=== PATIENT | male | born 1980 | race African-American/Black ===

== ENCOUNTER 2017-04-23 14:33 | Emergency (ER) | payer MEDICAID, OTHER ==
[2017-04-23] MEDS ORDERED: IBUPROFEN 600 MG TABLET PO ONE (16:00)
--- NOTE | 2017-04-23 16:07 | ER Document Report ---
ED Extremity Problem, Lower - General Chief Complaint: Knee Injury Stated Complaint: FALL KNEE PAIN Time Seen by Provider: 04/23/17 15:21 Mode of Arrival: Ambulatory Information source: Patient Notes: 33-year-old morbidly obese male presents to ED for pain in his left hip and knee. He states he has a history of a fractured pelvis on the left side in the past with no surgeries. Patient states he was coming out of his house after her neck motion outside 3 days ago states his he had not completely put his shoes on and he tripped coming down the stairs fell landing on his left side. States he has had pain in his left hip and knee since the fall but has not followed up with her doctor. States he thought he could use ibuprofen ice and be okay but the pain has not gotten better. 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 - HPI Patient complains to provider of: Injury, Pain Location: Hip, Knee Occurred: Other - 3 days ago Where: Home, Outdoors Onset/Duration: Sudden, Persistent Quality of pain: Achy, Sharp, Throbbing Severity: Moderate Pain Level: 3 Context: Fell Recent injury: Yes Associated symptoms: Painful ambulation, Other - States it feels like his left knee goes to the side sometimes. Has pain from the left pelvis down to his knee. Exacerbated by: Hanging down, Movement, Walking Relieved by: Elevation, Ice, Rest - Related Data Allergies/Adverse Reactions: No Known Allergies Allergy (Verified 04/23/17 15:13) Past Medical History - General Information source: Patient - Social History Smoking Status: Current Every Day Smoker Cigarette use (# per day): Yes - 2-3 cigarettes a day Chew tobacco use (# tins/day): No Smoking Education Provided: Yes - Less than 1 minute Frequency of alcohol use: Social - On the weekends Drug Abuse: None Occupation: Machine Operator [employer] Lives with: Parents Family History: Arthritis, CAD, DM, Hyperlipidemia, Hypertension, Malignancy. denies: COPD, CVA, Thyroid Disfunction Patient has suicidal ideation: No Patient has homicidal ideation: No - Past Medical History Cardiac Medical History: Reports: None Pulmonary Medical History: Reports: None EENT Medical History: Reports: None Neurological Medical History: Reports: None Endocrine Medical History: Reports: None Renal/ Medical History: Reports: None Malignancy Medical History: Reports None GI Medical History: Reports: None Musculoskeltal Medical History: Reports Hx Musculoskeletal Deformity, Reports Hx Musculoskeletal Trauma Skin Medical History: Reports None Psychiatric Medical History: Reports: None Traumatic Medical History: Reports: None Infectious Medical History: Reports: None Surgical Hx: Negative Past Surgical History: Reports: None - Immunizations Hx Diphtheria, Pertussis, Tetanus Vaccination: No Review of Systems - Review of Systems Constitutional: No symptoms reported EENT: No symptoms reported Cardiovascular: No symptoms reported Respiratory: No symptoms reported Gastrointestinal: No symptoms reported Genitourinary: No symptoms reported Male Genitourinary: No symptoms reported Musculoskeletal: Joint pain - Left hip and knee, Muscle pain, Muscle stiffness. denies: Joint swelling, Leg swelling, Ankle swelling Skin: No symptoms reported Hematologic/Lymphatic: No symptoms reported Neurological/Psychological: No symptoms reported -: Yes All other systems reviewed and negative Physical Exam - Vital signs Vitals: Temp Pulse BP Pulse Ox 97.7 F 89 149/90 H 93 04/23/17 15:12 04/23/17 15:12 04/23/17 15:12 04/23/17 15:12 Interpretation: Normal - General General appearance: Appears well, Alert - HEENT Head: Normocephalic, Atraumatic Eyes: Normal Pupils: PERRL - Respiratory Respiratory status: No respiratory distress Chest status: Nontender Breath sounds: Normal Chest palpation: Normal - Cardiovascular Rhythm: Regular Heart sounds: Normal auscultation Murmur: No - Abdominal Inspection: Normal Distension: No distension Bowel sounds: Normal Tenderness: Nontender Organomegaly: No organomegaly - Back Back: Normal, Nontender - Extremities General upper extremity: Normal inspection, Nontender, Normal color, Normal ROM , Normal temperature General lower extremity: Normal inspection, Normal color, Normal temperature, Normal weight bearing. No: Gia's sign Hip: Tender, Pain with ROM. No: Abrasion, Deformity, Dislocation, Ecchymosis, Instability, Laceration, Unable to bear weight Thigh: Tender Knee: Tender, Pain with ROM, Patellar tendon intact, Tender joint line. No: Abrasion, Deformity, Dislocation, Drawer's test instability, Ecchymosis, Instability, Laceration, Laxity with valgus stress, Laxity with varus stress, Popliteal fossa tender Calf: Normal, Nontender Ankle: Normal, Nontender Foot: Normal, Nontender - Neurological Neuro grossly intact: Yes Cognition: Normal Orientation: AAOx4 [place] Coma Scale Eye Opening: Spontaneous Juan Alberto Coma Scale Verbal: Oriented Juan Alberto Coma Scale Motor: Obeys Commands [place] Coma Scale Total: 15 Speech: Normal Motor strength normal: LUE, RUE, LLE, RLE Sensory: Normal - Psychological Associated symptoms: Normal affect, Normal mood - Skin Skin Temperature: Warm Skin Moisture: Dry Skin Color: Normal Course - Re-evaluation Re-evalutation: 04/23/17 16:53 Discussed x-ray reports with patient. Written report given to patient to follow -up with orthopedics. Patient has chronic changes to knee and hip with no acute injuries noted on the x-rays. Patient will be treated with ibuprofen in the emergency room. He was recommended using Aspercreme to the knee and hip for his arthritis. Patient will be given name and number of orthopedics for continued pain and further treatment. - Vital Signs Vital signs: Temp Pulse Resp BP Pulse Ox 97.7 F 75 18 150/95 H 94 04/23/17 15:12 04/23/17 17:17 04/23/17 17:17 04/23/17 17:17 04/23/17 17:17 - Diagnostic Test Radiology reviewed: Image reviewed, Reports reviewed Procedures - Immobilization Left Knee Immobilizer type: Federico wrap Performed by: PCT Post-Proc Neuro Vasc Exam: Normal Alignment checked and good: Yes Discharge - Discharge Clinical Impression: Chronic left hip pain, Arthritis of left hip, Arthritis of left knee Left knee pain Qualifiers: Chronicity: chronic Qualified Code(s): M25.562 - Pain in left knee Fall Qualifiers: Encounter type: initial encounter Qualified Code(s): W19.XXXA - Unspecified fall, initial encounter Condition: Stable Disposition: HOME, SELF-CARE Additional Instructions: Arthritis Your symptoms are due to arthritis. Arthritis is an inflammation of the joints. There are many types -- osteoarthritis (due to "wear and tear"), auto- immmune arthritis (such as rheumatoid, lupus, Shalonda's, and others), and crystal -induced arthritis (such as gout and pseudogout). The physician's examination, combined with laboratory tests, will determine the cause of your arthritis. All types of arthritis are treated with antiinflammatory medications. Other medication may be required for special types of arthritis, or if your problem does not respond to the antiinflammatory medicine. Local warmth may be helpful. Move the involved joints through the full range of motion daily. Mild exercise is usually still possible for most persons with arthritis (ask your physician). Swimming provides good exercise without damaging the joints. Contact the physician if you are worsening in any way. FEDERICO WRAP: A compression dressing (federico wrap) has been placed. This helps hold the area still. It limits swelling and internal bleeding. The wrap should be comfortably snug -- not tight. You should feel a sense of pressure, but not severe pain under the wrap. Unless the physician tells you otherwise, you can adjust the wrap for comfort. If the wrap causes symptoms suggesting it's too tight -- uncomfortable pressure, swelling or discoloration beyond the wrap, numbness, or severe pain - - you must loosen the wrap. If these symptoms don't resolve promptly, return for re-evaluation. Try icy hot or Aspercreme to the area of pain and be sure to follow-up with orthopedics for further treatment. ICE & ELEVATION: Apply ice packs frequently against the painful area. Many different schedules are recommended, such as "20 minutes on, 20 minutes off" or "one hour ice, two hours rest." If you need to work, you may need to go longer between ice treatments. You should plan to have the area ice packed AT LEAST one- fourth of the time. The ice should be applied over the wrap, tape, or splint, or over a layer of cloth -- not directly against the skin. Some ice bags have a built-in cloth and can be put directly on the skin. Your injured part should be elevated as much as possible over the next 48 hours. Try to keep the injury above the level of the heart. Avoid use of the injured area. Elevation and rest will decrease the swelling. USE OF [id number] IBUPROFEN: Ibuprofen (Advil, Nuprin, Medipren, Motrin IB) is a medication for fever and pain control. In addition, it has anti- inflammatory effects which may be beneficial, especially in the treatment of injuries. It's best to take ibuprofen with food. Persons with ulcer disease or allergy to aspirin should notify their physician of this before taking ibuprofen. Ibuprofen can be given every four to six hours, for a total of four doses daily. Age Pain or fever dose Antiinflammatory dose 6-8 yr 200 mg (1 tab) 200 mg (1 tab) 9-11 yr 200 mg (1 tab) 200-400 mg (1-2 tab) 11-14 yr 200-400 mg (1-2 tab) 400 mg (2 tab) 15-adult 400 mg (2 tab) 600 mg (3 tab) FOLLOW-UP CARE: If you have been referred to a physician for follow-up care, call the physician s office for an appointment as you were instructed or within the next two days. If you experience worsening or a significant change in your symptoms, notify the physician immediately or return to the Emergency Department at any time for re-evaluation. Forms: Elevated Blood Pressure, Smoking Cessation Education, Return to Work Referrals: ALBA MG, [ACTIVE STAFF] - Follow up as needed
--- NOTE | 2017-04-23 16:44 | RADIOLOGY REPORT (SQ) ---
EXAM DESCRIPTION: HIP LEFT AP/LATERAL COMPLETED DATE/TIME: 04/23/2017 4:33 pm REASON FOR STUDY: fall pain COMPARISON: None. NUMBER OF VIEWS: Two views. TECHNIQUE: AP pelvis and additional frog-leg view of the left hip. LIMITATIONS: None. FINDINGS: MINERALIZATION: Normal. LEFT HIP: No fracture or dislocation. No bulky bony spurring. Mild joint space narrowing. RIGHT HIP: No fracture or dislocation. No joint space narrowing or bony spurring. PUBIS AND ISCHIUM: No fracture. PELVIS: No acute fracture. Along left left superior pubic ramus, a band of chronic appearing periost eal new bone is present, which could be related to old remote prior injury. SACRUM: No fracture or dislocation. No worrisome bone lesions. LOWER LUMBAR SPINE: No fracture or dislocation. No worrisome bone lesions. No significant disc disea se. SOFT TISSUES: No findings. OTHER: Sclerosis both SI joints IMPRESSION: No acute fracture. Mild left hip joint space narrowing. TECHNICAL DOCUMENTATION: JOB ID: [id number] [employer]- All Rights Reserved
--- NOTE | 2017-04-23 16:50 | RADIOLOGY REPORT (SQ) ---
EXAM DESCRIPTION: KNEE LEFT 4 VIEW COMPLETED DATE/TIME: 04/23/2017 4:33 pm REASON FOR STUDY: fall pain COMPARISON: None. NUMBER OF VIEWS: Four views. TECHNIQUE: AP, lateral, and both oblique radiographic images acquired of the left knee. LIMITATIONS: None. FINDINGS: MINERALIZATION: Normal. BONES: No acute fracture or dislocation. No worrisome bone lesions. JOINT: No suprapatellar knee joint effusion. 1 cm loose body posterior left knee joint. There is tr icompartment moderate osteoarthritis with joint space narrowing and bony spurring. SOFT TISSUES: No soft tissue swelling. No radio-opaque foreign body. OTHER: No other significant finding. IMPRESSION: No acute fracture. Diffuse osteoarthritis. TECHNICAL DOCUMENTATION: JOB ID: [id number] [employer]- All Rights Reserved
[2017-04-23 17:19] VITALS: BP 150/95
== END 2017-04-23 17:19 | disposition home or self-care (01) ==
LOC: ER 14:33
DX: M13.852 Other specified arthritis, left hip (principal); M13.862 Other specified arthritis, left knee; M25.552 Pain in left hip; G89.29 Other chronic pain; M25.562 Pain in left knee; W10.9XXA Fall (on) (from) unspecified stairs and steps, initial encounter; F17.210 Nicotine dependence, cigarettes, uncomplicated
CPT/HCPCS: 99283

== ENCOUNTER 2018-05-14 16:44 | Emergency (ER) | payer SELFPAY ==
--- NOTE | 2018-05-14 17:40 | ER Document Report ---
HPI - HPI Pain Level: 4 Past Medical History - Social History Family History: Arthritis, CAD, DM, Hyperlipidemia, Hypertension, Malignancy. denies: COPD, CVA, Thyroid Disfunction Musculoskeletal Medical History: Reports Hx Musculoskeletal Deformity, Reports Hx Musculoskeletal Trauma - Immunizations Hx Diphtheria, Pertussis, Tetanus Vaccination: No Vertical Provider Document - INFECTION CONTROL TRAVEL OUTSIDE OF THE [place] IN LAST 30 DAYS: No Course - Re-evaluation Re-evalutation: 05/14/18 17:41 pt was call at 1715, just now got in a room to be seen. - Vital Signs Vital signs: Temp Pulse Resp BP Pulse Ox 99.0 F 102 H 18 170/78 H 92 05/14/18 16:53 05/14/18 16:53 05/14/18 16:53 05/14/18 16:53 05/14/18 16:53
--- NOTE | 2018-05-14 18:10 | ER Document Report ---
ED Medical Screen (RME) - General Chief Complaint: Leg Injury Stated Complaint: LEFT LEG PAIN Time Seen by Provider: 05/14/18 17:40 Mode of Arrival: Ambulatory Information source: Patient Notes: 37-year-old obese male who checked into the emergency room at 4:00 pm was called at 515 got into the room 10 minutes ago. He is complaining of left calf pain and swelling since he stumbled on a curb . 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 No chest pain or shortness of breath. No history of PE or DVT. TRAVEL OUTSIDE OF THE [place] IN LAST 30 DAYS: No - Related Data Allergies/Adverse Reactions: No Known Allergies Allergy (Verified 04/23/17 15:13) Past Medical History - Social History Chew tobacco use (# tins/day): No Frequency of alcohol use: Occasional Drug Abuse: None Renal/ Medical History: Denies: Hx Peritoneal Dialysis Musculoskeltal Medical History: Reports Hx Musculoskeletal Deformity, Reports Hx Musculoskeletal Trauma - Immunizations Hx Diphtheria, Pertussis, Tetanus Vaccination: No Physical Exam - Vital signs Vitals: Temp Pulse Resp BP Pulse Ox 98.3 F 103 H 18 172/89 H 92 05/14/18 16:50 05/14/18 16:50 05/14/18 16:50 05/14/18 16:50 05/14/18 16:50 Course - Vital Signs Vital signs: Temp Pulse Resp BP Pulse Ox 99.0 F 102 H 18 170/78 H 92 05/14/18 16:53 05/14/18 16:53 05/14/18 16:53 05/14/18 16:53 05/14/18 16:53
[2018-05-14] MEDS ORDERED: IPRATROPIUM/ALBUTEROL 0.5-2.5 MG/3 ML AMPUL NEB ONE (18:15)
[2018-05-14 18:39] LABS: ABSOLUTE BASOPHILS # (AUTO) 0.1 10^3/uL (0.0-0.2); ABSOLUTE EOSINOPHILS # (AUTO) 0.3 10^3/uL (0.0-0.6); BASOPHILS % (AUTO) 0.6 % (0-2); EOSINOPHILS % (AUTO) 3.8 % (0-6); HEMATOCRIT 44.4 % (37.9-51.0); HEMOGLOBIN 15.2 g/dL (13.5-17.0); LYMPHOCYTES % (AUTO) 35.8 % (13-45); MEAN CORPUSCULAR HEMOGLOBIN 31.3 pg (27.0-33.4); MEAN CORPUSCULAR HGB CONC 34.2 g/dL (32.0-36.0); MEAN CORPUSCULAR VOLUME 92 fl (80-97); MONOCYTES % (AUTO) 12.3 % (3-13); PLATELET COUNT 270 10^3/uL (150-450); RED BLOOD COUNT 4.85 10^6/uL (4.35-5.55); SEGMENTED NEUTROPHILS % (AUTO) 47.5 % (42-78); TOTAL CELLS COUNTED % (AUTO) 100 %; WHITE BLOOD COUNT 8.4 10^3/uL (4.0-10.5)
[2018-05-14 18:44] LABS: INTERNATIONAL RATION (INR) 1.03
[2018-05-14 18:45] LABS: PARTIAL THROMBOPLASTIN TIME 33.2 SEC (23.5-35.8)
[2018-05-14 19:00] LABS: ALANINE AMINOTRANSFERASE 60 U/L (21-72); ALBUMIN 4.6 g/dL (3.5-5.0); ALKALINE PHOSPHATASE 78 U/L (38-126); ANION GAP 14 (5-19); ASPARTATE AMINO TRANSFERASE 32 U/L (17-59); BILIRUBIN,DIRECT 0.2 mg/dL (0.0-0.4); BILIRUBIN,TOTAL 0.5 mg/dL (0.2-1.3); BLOOD UREA NITROGEN 13 mg/dL (7-20); CALCIUM 10.2 mg/dL (8.4-10.2); CARBON DIOXIDE 32 mmol/L (22-30); CHLORIDE 99 mmol/L (98-107); GLUCOSE 140 mg/dL (75-110); POTASSIUM 4.3 mmol/L (3.6-5.0); SODIUM 145.4 mmol/L (137-145); TOTAL PROTEIN 8.3 g/dL (6.3-8.2)
--- NOTE | 2018-05-14 20:01 | ER Document Report ---
ED General - General Chief Complaint: Leg Injury Stated Complaint: LEFT LEG PAIN Time Seen by Provider: 05/14/18 17:40 Mode of Arrival: Ambulatory Information source: Patient Notes: This is a 37-year-old man with a history of borderline hypertension, morbid obesity who presents to the emergency room with left lower extremity pain after an injury. He also reports a few days of cough, congestion, sinus pressure in the setting of a sick contact at work. 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 He states that over the weekend (2 days ago) he was taken out the garbage stepping down off a curb any "karon" his left knee. He states his pain in the left knee and the left calf since that time. He did state during that time he has had increased cough and congestion. He is currently on no medicines but is told that he has had borderline high blood pressure in the past. He recently moved here from [facility]. Patient does give a history of injuring his left knee 2 years ago. He does report that he reinjured the knee 2 months ago when he took a "nasty fall". And then recently (2 days ago) when he re-exacerbated the knee. He does complain of left calf pain and has had some shortness of breath. TRAVEL OUTSIDE OF THE [place] IN LAST 30 DAYS: No - HPI Onset: Last week Onset/Duration: Gradual Quality of pain: Dull Severity: Moderate Pain Level: 2 Associated symptoms: denies: Chest pain, Shortness of breath Exacerbated by: Denies Relieved by: Denies Similar symptoms previously: Yes Recently seen / treated by doctor: No - Related Data Allergies/Adverse Reactions: No Known Allergies Allergy (Verified 04/23/17 15:13) Past Medical History - General Information source: Patient - Social History Smoking Status: Current Every Day Smoker Cigarette use (# per day): Yes - Half a pack per day Chew tobacco use (# tins/day): No Frequency of alcohol use: Occasional Drug Abuse: None Lives with: Family Family History: Arthritis, CAD, DM, Hyperlipidemia, Hypertension, Malignancy. denies: COPD, CVA, Thyroid Disfunction Patient has suicidal ideation: No Patient has homicidal ideation: No - Past Medical History Cardiac Medical History: Reports: Hx Hypertension Renal/ Medical History: Denies: Hx Peritoneal Dialysis Musculoskeletal Medical History: Reports Hx Musculoskeletal Deformity, Reports Hx Musculoskeletal Trauma Surgical Hx: Negative - Immunizations Hx Diphtheria, Pertussis, Tetanus Vaccination: No Review of Systems - Review of Systems Constitutional: denies: Chills, Fever EENT: Nose congestion, Sinus pressure Cardiovascular: No symptoms reported Respiratory: Short of breath Gastrointestinal: No symptoms reported Genitourinary: No symptoms reported Male Genitourinary: No symptoms reported Musculoskeletal: See HPI Skin: No symptoms reported Hematologic/Lymphatic: No symptoms reported Neurological/Psychological: No symptoms reported Physical Exam - Vital signs Vitals: Temp Pulse Resp BP Pulse Ox 98.3 F 103 H 18 172/89 H 92 05/14/18 16:50 05/14/18 16:50 05/14/18 16:50 05/14/18 16:50 05/14/18 16:50 Notes: Physical exam: GENERAL: She is alert and oriented x3, no acute distress HEAD: Atraumatic, normocephalic. EYES: Pupils equal round and reactive to light, extraocular movements intact, sclera anicteric, conjunctiva are normal. ENT: TMs normal, she does have rhinorrhea and maxillary sinus mild tenderness, oropharynx clear without exudates. Moist mucous membranes. NECK: Normal range of motion, supple without obvious mass or JVD. LUNGS: Breath sounds clear to auscultation bilaterally and equal. No wheezes rales or rhonchi. HEART: Regular rate and rhythm without murmurs, rubs or gallops. ABDOMEN: Soft, normoactive bowel sounds. No tenderness to palpation. No guarding, no rebound. No masses appreciated. EXTREMITIES: Normal range of motion, no pitting or edema. She does have some tenderness over the knee joint but there is no laxity with stress. He has mild tenderness in the left popliteal region without any erythema or warmth. Patient does have some left calf tenderness with some Swelling. NEUROLOGICAL: Cranial nerves II through XII grossly intact. Normal speech, moving all extremities. PSYCH: Normal mood, normal affect. SKIN: Warm, Dry, normal turgor, no rashes or lesions noted. Course - Re-evaluation Re-evalutation: 05/15/18 03:33 Note: This patient has had several injuries to that left knee. He re- exacerbated the knee 2 days ago and is been having a lot of pain in the knee and just below it in the calf. He is a big man and probably has some underlying obstructive sleep apnea. Additionally, he has symptoms of URI. But the concern was that he was having calf pain and some shortness of breath. Therefore lower extremity Dopplers were performed (which did not show any evidence of a DVT). The CTA was performed and it was nondiagnostic therefore a VQ scan was performed and showed no evidence of DVT. I will refer the patient to orthopedics for his left knee injury. I have given him a referral to primary care doctor for his borderline hypertension and most likely obstructive sleep apnea. - Vital Signs Vital signs: Temp Pulse Resp BP Pulse Ox 97.1 F 84 14 163/89 H 92 05/15/18 02:52 05/15/18 02:52 05/15/18 02:52 05/15/18 02:52 05/15/18 02:52 - Laboratory Result Diagrams: 05/14/18 18:20 05/14/18 18:20 Laboratory results interpreted by me: 05/14/18 18:20 Sodium 145.4 H Carbon Dioxide 32 H Glucose 140 H Total Protein 8.3 H - Diagnostic Test Radiology reviewed: Image reviewed, Reports reviewed - Lower extremity Dopplers negative for DVT. CTA of the chest nondiagnostic. VQ scan negative. CT of the lower extremity shows most likely an old injury to the left hip tibial plateau. Discharge - Discharge Clinical Impression: Left knee injury, Dyspnea Condition: Stable Disposition: HOME, SELF-CARE Additional Instructions: As we discussed, the CT did show some bony damage to the left knee. Most likely this is from your old injury and you have probably re-exacerbated it recently 2 weeks ago and again a few days ago. I do want you to follow-up with an orthopedic surgeon. I would like you to ambulate with crutches for the next few days to take pressure off the left knee to allow it to heal. The ultrasound of the legs showed no evidence of blood clots. The scan of the chest showed no evidence of blood clots. Can apply ice to the knee. You can elevate the knee when lying down. Ambulate with crutches. Pain medicine as prescribed. Into the emergency room for worsening calf pain, worsening lower extremity swelling, worsening shortness of breath or any concerns or getting worse. The pain medicine you're taking prescribed as a narcotic. There are several important things you should know about this medicine: 1. This medicine contains Tylenol: It is important that you do not take Tylenol (or acetaminophen) while on this medicine. Tylenol is metabolized by the liver and taking too much Tylenol (acetaminophen) can lay to liver damage and even liver failure. 2. Taking narcotics for too long can lead to physical and mental dependence. Take this medicine only if really needed and in the lowest quantity to achieve pain relief. 3. Do not drink alcohol while on this medicine. Alcohol interacts with narcotics and the combination can be dangerous. 4. Do not drive or operate machinery while on this medicine. 5. Narcotics do cause constipation, so drink plenty of fluids and daily stool softeners. Ultimately I would like you to follow-up with a primary care doctor Recommendations: It is recommended to followup with a primary care doctor within the next 2 days. If you do not have a primary care doctor or you are unable to get an apointment during that time, I left the number for some internal medicine physicians that are affiliated with this [facility]. Dr. Mir Gilman [facility] [address], [place] [address] [phone] [address] Chavarria Address: [address] [place] [address] Dr Barroso Address: [address] [place] [address] , [place] [address] Prescriptions: Oxycodone HCl/Acetaminophen [Percocet 5-325 mg Tablet] 1 - 2 tab PO ASDIR PRN # 25 tablet PRN Reason: Forms: Return to Work Referrals: JAYLYN PEACOCK MD [ACTIVE STAFF] - Follow up as needed (This is the number the bone doctor: Call for an appointment)
--- NOTE | 2018-05-14 20:06 | RADIOLOGY REPORT (SQ) ---
EXAM DESCRIPTION: TIBIA FIBULA LEFT COMPLETED DATE/TIME: 05/14/2018 7:27 pm REASON FOR STUDY: pain and swelling left lower leg COMPARISON: None. NUMBER OF VIEWS: Two views. TECHNIQUE: Two radiographic images acquired of the left tibia and fibula to include the knee and ank le in at least one projection. LIMITATIONS: None. FINDINGS: MINERALIZATION: Normal. BONES: There is mild depression of the lateral tibial plateau, but no definite fracture line is seen. SOFT TISSUES: No obvious swelling or foreign body. OTHER: No other significant finding. IMPRESSION: Mild depression of the lateral tibial plateau. No definite fracture line. TECHNICAL DOCUMENTATION: JOB ID: [id number] [employer]- All Rights Reserved Reading location - IP/workstation name: [email or web address]
--- NOTE | 2018-05-14 20:07 | RADIOLOGY REPORT (SQ) ---
EXAM DESCRIPTION: CHEST 2 VIEWS COMPLETED DATE/TIME: 05/14/2018 7:27 pm REASON FOR STUDY: sob, low pulse ox COMPARISON: None. EXAM PARAMETERS: NUMBER OF VIEWS: two views TECHNIQUE: Digital Frontal and Lateral radiographic views of the chest acquired. RADIATION DOSE: NA LIMITATIONS: none FINDINGS: LUNGS AND PLEURA: Mild linear atelectasis in the lower lobes. MEDIASTINUM AND HILAR STRUCTURES: No masses or contour abnormalities. HEART AND VASCULAR STRUCTURES: Heart normal size. No evidence for failure. BONES: No acute findings. HARDWARE: None in the chest. OTHER: No other significant finding. IMPRESSION: NO ACUTE RADIOGRAPHIC FINDING IN THE CHEST. TECHNICAL DOCUMENTATION: JOB ID: [id number] [employer]- All Rights Reserved Reading location - IP/workstation name: [email or web address]
[2018-05-14 21:07] LABS: A TYPE INFLUENZA AG NEGATIVE (NEGATIVE); B INFLUENZA AG NEGATIVE (NEGATIVE)
--- NOTE | 2018-05-14 21:12 | RADIOLOGY REPORT (SQ) ---
US LOWER EXTREMITY VEINS HISTORY: Leg pain and swelling. COMPARISON: None. TECHNIQUE: Grayscale, color Doppler, and spectral Doppler images of the left lower extremity were performed. FINDINGS: The common femoral, superficial femoral and popliteal veins are patent and compressible. Normal augmentation and color Doppler blood flow in the aforementioned veins. The visualized calf veins are also patent. IMPRESSION: No evidence of DVT in the left lower extremity.
--- NOTE | 2018-05-14 21:38 | RADIOLOGY REPORT (SQ) ---
CT LOWER EXTREMITY WITHOUT IV CONTRAST HISTORY: Knee pain. COMPARISON: None. TECHNIQUE: CT scan of the left knee without IV contrast. This exam was performed according to our departmental dose-optimization program, which includes automated exposure control, adjustment of the mA and/or kV according to patient size and/or use of iterative reconstruction technique. FINDINGS: No acute fracture or malalignment. Multiple ossific fragments abutting the medial femoral condyle as well as the posterior tibial plateau likely sequela of prior injury. Tiny ossific fragment abutting the posterior lateral tibial plateau (series 103 image 40). Moderate tricompartmental degenerative changes with osteophytosis and subchondral sclerosis and cystic changes. Trace suprapatellar joint fluid without effusion. Mild soft tissue swelling surrounds the left knee. IMPRESSION: No definite fracture line or knee joint effusion is visualized. Multiple ossific fragments abutting the posterior tibial plateau likely represent sequela of prior injury, although acute on chronic injury cannot be excluded on CT. Recommend MRI if clinically indicated.
--- NOTE | 2018-05-14 21:48 | RADIOLOGY REPORT (SQ) ---
CT CHEST ANGIOGRAPHY WITHOUT THEN WITH IV CONTRAST HISTORY: Shortness of breath. Evaluate for pulmonary embolism. COMPARISON: None. TECHNIQUE: CT angiogram of the chest with IV contrast. 3-D MIP images were obtained in coronal and sagittal reconstructions. This exam was performed according to our departmental dose-optimization program, which includes automated exposure control, adjustment of the mA and/or kV according to patient size and/or use of iterative reconstruction technique. FINDINGS: Nondiagnostic study for pulmonary embolism given suboptimal IV contrast bolus timing. Normal heart size. No pericardial effusion. Thyroid gland is unremarkable. No mediastinal, hilar, or axillary adenopathy is seen. No consolidation, pleural effusion, or pneumothorax is identified. Osseous structures are intact. Visualized upper abdomen is unremarkable. IMPRESSION: Nondiagnostic study for pulmonary embolism given suboptimal IV contrast bolus timing. Filling defects in the segmental branches in the lower lobes may represent either artifact, motion, or small pulmonary emboli but this study is nondiagnostic.
--- NOTE | 2018-05-15 00:44 | RADIOLOGY REPORT (SQ) ---
EXAM DESCRIPTION: NM LUNG PERFUSION COMPLETED DATE/TME: 05/14/2018 22:53 CLINICAL HISTORY: 37 years, Male, sob COMPARISON: CT of the chest done on the same day RADIONUCLIDE AND DOSE: 4.65 mCi of technetium 99m MAA ADDITIONAL DRUGS AND DOSES: None TECHNIQUE: Only a perfusion scan was done in multiple planes LIMITATIONS: None. FINDINGS: There is normal perfusion of the bilateral lung victor IMPRESSION: Normal bilateral lung perfusion 2010 [employer]- All Rights Reserved
[2018-05-15 03:17] VITALS: BP 163/89
== END 2018-05-15 02:52 | disposition home or self-care (01) ==
LOC: ER 16:44
DX: S89.92XA Unspecified injury of left lower leg, initial encounter (principal); R06.00 Dyspnea, unspecified; M79.605 Pain in left leg; R05 Cough; R09.81 Nasal congestion; R51 Headache; X50.1XXA Overexertion from prolonged static or awkward postures, initial encounter; Y99.0 Civilian activity done for income or pay; F17.210 Nicotine dependence, cigarettes, uncomplicated; I10 Essential (primary) hypertension; E66.01 Morbid (severe) obesity due to excess calories
CPT/HCPCS: 94640; 99284; 36415; 85025; 85610; 85730; 80053; 85379; 87804; 93971; 71046; 73590; 78580; 71275; 73700; A9540; J7620; Q9969

== ENCOUNTER 2018-11-13 18:53 | Emergency (ER) | payer OTHER ==
[2018-11-13] MEDS ORDERED: IBUPROFEN 800 MG TABLET PO ONE (22:14)
[2018-11-13] MEDS ORDERED: CEPHALEXIN 500 MG CAPSULE PO ONE (22:14)
[2018-11-13] MEDS ORDERED: DIPH/PERTUSS(ACELL)/TETANUS VAC/PF 0.5 ML SYR (>=10YO) IM ONE (22:14)
--- NOTE | 2018-11-13 22:18 | ER Document Report ---
HPI - HPI Time Seen by Provider: 11/13/18 21:57 Pain Level: 2 Context: Patient is a 37-year-old male that comes to the emergency department for chief complaint of right thumb injury. This happened yesterday, patient states he was working and that he accidentally caught his finger with the side of a sharp edge of a carranza which is metal. This caused a laceration and bleeding, he states he tried to put some "skin glue" on the wound, he states that he became concerned a nd came in today for a tetanus shot. He denies swelling, redness, discolored discharge, additional bleeding. He is not a diabetic. He cannot recall when his last tetanus vaccination was. He denies any other complaints. - MUSCULOSKELETAL Musculoskeletal: REPORTS: Extremity pain - Rt thumb Past Medical History - General Information source: Patient - Social History Smoking Status: Current Every Day Smoker Chew tobacco use (# tins/day): No Frequency of alcohol use: Occasional Drug Abuse: None Lives with: Family Family History: Arthritis, CAD, DM, Hyperlipidemia, Hypertension, Malignancy. denies: COPD, CVA, Thyroid Disfunction Patient has suicidal ideation: No Patient has homicidal ideation: No - Past Medical History Cardiac Medical History: Reports: Hx Hypertension Renal/ Medical History: Denies: Hx Peritoneal Dialysis Musculoskeletal Medical History: Reports Hx Musculoskeletal Deformity, Reports Hx Musculoskeletal Trauma - Immunizations Hx Diphtheria, Pertussis, Tetanus Vaccination: No Vertical Provider Document - CONSTITUTIONAL General Appearance: WD/WN, No Apparent Distress - INFECTION CONTROL TRAVEL OUTSIDE OF THE [place] IN LAST 30 DAYS: No - HEENT HEENT: Atraumatic, Normocephalic - NECK Neck: Normal Inspection - RESPIRATORY Respiratory: Breath Sounds Normal, No Respiratory Distress - CARDIOVASCULAR Cardiovascular: Regular Rate, Regular Rhythm - GI/ABDOMEN Gastrointestinal: Abdomen Soft, Abdomen Non-Tender - BACK Back: Normal Inspection - MUSCULOSKELETAL/EXTREMETIES Musculoskeletal/Extremeties: Tender - There is a healing laceration over the mid aspect of the right thumb over the palmar aspect. This is horizontal, approximately 1.5 cm in length. Patient with full strength against flexion and extension resistance. Normal capillary refill and sensation. Normal hand exam otherwise. - NEURO Level of Consciousness: Awake, Alert, Appropriate - DERM Integumentary: Warm, Dry, No Rash Course - Re-evaluation Re-evalutation: Wound of the thumb was yesterday, patient has already glued this. There is no swelling, erythema, concerning tenderness, or evidence of tendon injury on my evaluation. Updated tetanus, I am placing him on prophylaxis because this was apparently a dirty wound, he was given first dose now. Discussed expectations, wound care, follow-up, and return precautions. Patient states satisfaction and agreement with plan. - Vital Signs Vital signs: Temp Pulse Resp BP Pulse Ox 98.2 F 88 18 168/91 H 95 11/13/18 19:04 11/13/18 19:04 11/13/18 19:04 11/13/18 19:04 11/13/18 19:04 Discharge - Discharge Clinical Impression: Thumb laceration Qualifiers: Encounter type: initial encounter Damage to nail status: without damage Foreign body presence: without foreign body Laterality: right Qualified Code(s): S61.011A - Laceration without foreign body of right thumb without damage to nail, initial encounter Condition: Stable Disposition: HOME, SELF-CARE Additional Instructions: Keep wound clean, clean with soap and water, dab dry. Avoid soaking. Take antibiotic to avoid infection as prescribed. Your tetanus has been updated. Take ibuprofen if needed for pain. Follow-up with primary care. Return for any concerning symptoms including signs of infection such as developing pain, redness, swelling, discolored discharge, fever, or any other concerning or worsening symptoms. Prescriptions: Cephalexin Monohydrate [Keflex 500 mg Capsule] 500 mg PO QID 5 Days #20 capsule Ibuprofen [Ibu] 800 mg PO TID PRN #30 tablet PRN Reason: Forms: Return to Work, Elevated Blood Pressure
[2018-11-13 22:40] VITALS: BP 198/98
== END 2018-11-13 22:51 | disposition home or self-care (01) ==
LOC: ER 18:53
DX: S61.011A Laceration without foreign body of right thumb without damage to nail, initial encounter (principal); W26.8XXA Contact with other sharp object(s), not elsewhere classified, initial encounter; Y99.0 Civilian activity done for income or pay; Z23 Encounter for immunization; F17.200 Nicotine dependence, unspecified, uncomplicated; I10 Essential (primary) hypertension
CPT/HCPCS: 90471; 90715; 99283

== ENCOUNTER 2019-11-20 14:36 | Emergency (ER) | payer SELFPAY ==
[2019-11-20 14:40] VITALS: BP 181/101
[2019-11-20] MEDS ORDERED: CEPHALEXIN 500 MG CAPSULE PO ONE (14:46)
[2019-11-20] MEDS ORDERED: CIPROFLOXACIN HCL 500 MG TABLET PO ONE (14:46)
[2019-11-20] MEDS ORDERED: DIPH/PERTUSS(ACELL)/TETANUS VAC/PF 0.5 ML SYR (>=10YO) IM ONE (14:46)
--- NOTE | 2019-11-20 14:50 | ER Document Report ---
HPI - HPI Time Seen by Provider: 11/20/19 14:45 Pain Level: Denies Context: CHIEF COMPLAINT: Puncture wound left foot HPI: 38-year-old male presenting to the emergency department having just stepped on a nail with tennis shoes on. States he is not up-to-date on his tetanus vaccination denies acute pain in the foot but was concerned about the puncture injury. Denies other complaints. States he is not diabetic. ROS: See HPI - all other systems were reviewed and are otherwise negative Constitutional: no fever Integumentary: no rash Allergy: no hives Musculoskeletal: no extremity pain or swelling, positive puncture wound Neurological: no numbness/tingling, no weakness MEDICATIONS: I agree with the patient medications as charted by the RN. ALLERGIES: I agree with the allergies as charted by the RN. PAST MEDICAL HISTORY/PAST SURGICAL HISTORY: Reviewed and agree as charted by RN. SOCIAL HISTORY: Reviewed and agree as charted by RN. FAMILY HISTORY: No significant familial comorbid conditions directly related to patient complaint EXAM: Reviewed vital signs as charted by RN. CONSTITUTIONAL: Alert and oriented and responds appropriately to questions. Well-appearing; well-nourished HEAD: Normocephalic; atraumatic EYES: Conjunctivae clear, sclerae non-icteric ENT: normal nose; no rhinorrhea; moist mucous membranes NECK: Supple without meningismus CARD: symmetric distal pulses RESP: Normal chest excursion without splinting or tachypnea ABD/GI: non-distended BACK: The back appears normal EXT: Normal ROM in all joints; non-tender to palpation; no cyanosis, no effusions, no edema SKIN: Normal color for age and race; warm; dry; good turgor; small puncture wound is noted to the plantar aspect of the left foot at the base of the right great toe proximal to the MCP region by 1 cm over the medial pad. No visible or palpable foreign bodies NEURO: Moves all extremities equally; Motor and sensory function intact PSYCH: The patient's mood and manner are appropriate. Grooming and personal hygiene are appropriate. MDM: 38-year-old male with a puncture wound to the right foot on a nail through shoe. No visible or palpable foreign bodies will obtain x-ray to evaluate for retained foreign body or bony injury. Will update patient's tetanus status place him on Cipro for Pseudomonas coverage as well as Keflex. Patient was given strict instruction regarding signs of infection for return Past Medical History - Social History Smoking Status: Current Some Day Smoker Chew tobacco use (# tins/day): No Frequency of alcohol use: Occasional Drug Abuse: None Family History: Arthritis, CAD, DM, Hyperlipidemia, Hypertension, Malignancy. denies: COPD, CVA, Thyroid Disfunction Patient has homicidal ideation: No - Past Medical History Cardiac Medical History: Reports: Hx Hypertension Renal/ Medical History: Denies: Hx Peritoneal Dialysis Musculoskeletal Medical History: Reports Hx Musculoskeletal Deformity, Reports Hx Musculoskeletal Trauma - Immunizations Hx Diphtheria, Pertussis, Tetanus Vaccination: No Vertical Provider Document - INFECTION CONTROL TRAVEL OUTSIDE OF THE [place] IN LAST 30 DAYS: No Course - Re-evaluation Re-evalutation: 11/20/19 15:36 X-ray does not reveal evidence of a foreign body or fracture on my review. Will keep patient on antibiotics, refer to PCP for follow-up - Vital Signs Vital signs: Temp Pulse Resp BP Pulse Ox 98.8 F 96 18 181/101 H 95 11/20/19 14:44 11/20/19 14:39 11/20/19 14:39 11/20/19 14:39 11/20/19 14:39 Discharge - Discharge Clinical Impression: Puncture wound of foot, left Qualifiers: Encounter type: initial encounter Qualified Code(s): S91.332A - Puncture wound without foreign body, left foot, initial encounter Hypertension Qualifiers: Hypertension type: unspecified Qualified Code(s): I10 - Essential (primary) hypertension Condition: Stable Disposition: HOME, SELF-CARE Additional Instructions: Clean the wound area with soap and water twice daily. Take the antibiotics as prescribed. If you develop worsening pain, soft tissue swelling or redness from the area or onto the top of the foot return for reevaluation. Return for reevaluation also if you develop fever greater than 101. Follow-up with a primary care provider for reevaluation of both the wound area and your elevated blood pressure today. Prescriptions: Ciprofloxacin HCl [Cipro 500 mg Tablet] 500 mg PO BID #14 tablet Cephalexin Monohydrate [Keflex 500 mg Capsule] 500 mg PO Q6H 7 Days #28 capsule Referrals: CARTER PULIDO MD [ACTIVE STAFF] - Follow up as needed
--- NOTE | 2019-11-20 15:38 | RADIOLOGY REPORT (SQ) ---
EXAM DESCRIPTION: FOOT LEFT COMPLETE IMAGES COMPLETED DATE/TIME: 11/20/2019 3:26 pm REASON FOR STUDY: puncture wound COMPARISON: None. NUMBER OF VIEWS: Three views. TECHNIQUE: AP, lateral and oblique radiographic images acquired of the left foot. LIMITATIONS: None. FINDINGS: MINERALIZATION: Normal. BONES: No acute fracture or dislocation. No worrisome bone lesions. JOINTS: No effusions. SOFT TISSUES: No soft tissue swelling. No foreign body. OTHER: No other significant finding. IMPRESSION: NEGATIVE STUDY OF THE LEFT FOOT. NO RADIOGRAPHIC EVIDENCE OF ACUTE INJURY. TECHNICAL DOCUMENTATION: JOB ID: [id number] 2010 [employer]- All Rights Reserved Reading location - IP/workstation name: [email or web address]
== END 2019-11-20 15:50 | disposition home or self-care (01) ==
LOC: ER 14:36
DX: S91.332A Puncture wound without foreign body, left foot, initial encounter (principal); W45.0XXA Nail entering through skin, initial encounter; F17.200 Nicotine dependence, unspecified, uncomplicated; I10 Essential (primary) hypertension; Z23 Encounter for immunization
CPT/HCPCS: 90471; 90715; 99283